=== PATIENT | female | born 1980 | race Caucasian/White ===

== ENCOUNTER 2016-10-15 23:51 | Emergency (ER) | payer BC, MEDICAID, OTHER ==
[~2016-10-15 23:51] MED LIST: Lidocaine 1% with EPINEPHrine 1:100,000 10 ML MDV INFILT ONE
[2016-10-16 01:55] VITALS: BP 132/91
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
== END 2016-10-16 01:15 ==
LOC: FB.ED 23:51
DX: S01.01XA Laceration without foreign body of scalp, initial encounter (principal); Y04.8XXA Assault by other bodily force, initial encounter; Y92.9 Unspecified place or not applicable
CPT/HCPCS: 12002; 99282